=== PATIENT | male | born 1970 | race Caucasian/White ===

== ENCOUNTER 2022-10-05 14:28 | Outpatient (CLI) | payer MEDICAID | END 2022-10-05 14:29 | disposition critical access hospital (66) | LOC: EMS 14:28 | DX: R41.82 Altered mental status, unspecified (principal); R11.2 Nausea with vomiting, unspecified; R63.8 Other symptoms and signs concerning food and fluid intake; R14.0 Abdominal distension (gaseous); H55.00 Unspecified nystagmus; R00.0 Tachycardia, unspecified; Z72.89 Other problems related to lifestyle | CPT/HCPCS: A0425; A0427; A0999 ==

== ENCOUNTER 2022-10-05 15:15 | Emergency (ER) | payer MEDICAID ==
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
[2022-10-05 15:45] LABS: BASOPHILS # (AUTO) 0.1 10^3/uL (0.0-0.1); BASOPHILS % (AUTO) 1.1 %; EOSINOPHILS % (AUTO) 0.2 %; HCT - HEMATOCRIT 32.8 % (42.0-52.0); HGB - HEMOGLOBIN 10.2 g/dL (14.0-18.0); LYMPHOCYTES # (AUTO) 0.6 10^3/uL (1.5-3.5); LYMPHOCYTES % (AUTO) 12.5 %; MEAN CORPUSCULAR HEMOGLOBIN 28.3 pg (27.0-31.0); MEAN CORPUSCULAR HGB CONC 31.1 g/dL (32.0-36.0); MEAN CORPUSCULAR VOLUME 90.9 fL (80.0-94.0); MEAN PLATELET VOLUME 9.8 fL (7.4-11.4); MONOCYTES # (AUTO) 0.4 10^3/uL (0.0-1.0); MONOCYTES % (AUTO) 8.9 %; NEUTROPHILS # (AUTO) 3.6 10^3/uL (1.5-6.6); NEUTROPHILS % (AUTO) 76.7 %; PLT - PLATELET COUNT 107 10^3/uL (130-450); RED BLOOD COUNT 3.61 10^6/uL (4.70-6.10); RED CELL DISTRIBUTION WIDTH 22.2 % (12.0-15.0); WHITE BLOOD COUNT 4.6 x10^3/uL (4.8-10.8)
[2022-10-05 15:55] LABS: ALBUMIN 3.8 g/dL (3.2-5.5); ALBUMIN/GLOBULIN RATIO 1.1 (1.0-2.2); ALKALINE PHOSPHATASE 201 IU/L (42-121); ALT ALANINE AMINOTRANSFERASE 44 IU/L (10-60); AST ASPARTATE AMINOTRANSFERASE 176 IU/L (10-42); BILIRUBIN,TOTAL 2.1 mg/dL (0.2-1.0); BUN - BLOOD UREA NITROGEN 8 mg/dL (6-20); CALCIUM 8.5 mg/dL (8.5-10.3); CARBON DIOXIDE - CO2 25 mmol/L (21-32); CHLORIDE 98 mmol/L (101-111); CREATININE 0.5 mg/dL (0.6-1.2); ETOH - ETHANOL < 5.0 mg/dL; GFR - MDRD 177 (>89); GLUCOSE 102 mg/dL (70-100); LIPASE 40 U/L (22-51); POTASSIUM 3.4 mmol/L (3.5-5.0); SODIUM 136 mmol/L (135-145); TOTAL PROTEIN 7.3 g/dL (6.7-8.2)
[2022-10-05] MEDS ORDERED: LORazepam 1 MG TABLET PO STA (15:57)
[2022-10-05 16:15] LABS: PLATELET ESTIMATE, MANUAL DECREASED (<130,000) (NORMAL); PLATELET MORPHOLOGY NORMAL APPEARANCE (NORMAL); SLIDE REVIEW? Indicated
[2022-10-05 16:32] VITALS: BP 143/89
== END 2022-10-05 17:45 | disposition home or self-care (01) ==
LOC: EDUNIT# → ED 15:15
DX: F10.239 Alcohol dependence with withdrawal, unspecified (principal); Y90.0 Blood alcohol level of less than 20 mg/100 ml; D64.9 Anemia, unspecified; R94.5 Abnormal results of liver function studies
CPT/HCPCS: 36415; 80053; 80320; 83690; 85025; 93005; 99284; J8499

== ENCOUNTER 2023-06-15 18:12 | Outpatient (CLI) | payer MEDICAID ==
--- NOTE | 2023-06-15 19:06 | XRAY Report ---
PROCEDURE: Chest 2 View X-Ray INDICATIONS: WHEEZING/PRODUCTIVE COUGH TECHNIQUE: 2 views of the chest were acquired. COMPARISON: None. FINDINGS: Surgical changes and devices: None. Lungs and pleura: In the right lower lobe pulmonary infiltrate with probable scarring. Left lung and both pleural spaces clear Mediastinum: Mediastinal contours appear normal. Heart size is normal. Bones and chest wall: No suspicious bony lesions. Overlying soft tissues appear unremarkable. IMPRESSION: Right lower lobe pulmonary infiltrate Reviewed by: Juan Jose Henderson MD on 06/15/2023 6:05 PM SERGE Approved by: Juan Jose Henderson MD on 06/15/2023 6:05 PM SERGE Station ID: [id number]
== END 2023-06-15 23:59 | disposition home or self-care (01) ==
LOC: DI.S 18:12
PROVIDERS: ATTEND Physician Assistant Medical
DX: R91.8 Other nonspecific abnormal finding of lung field (principal)